=== PATIENT | female | born 2005 | race African-American/Black ===

== ENCOUNTER 2025-04-15 17:32 | Emergency (ER) | payer OTHER ==
[~2025-04-15] VITALS: Ht 170.2 cm; Wt 72.8 kg
[2025-04-15 20:29] LABS: PLATELET COUNT, AUTOMATED 212 10^3/uL (150-450)
[2025-04-15 20:53] LABS: MONO SCRN POSITIVE (NEGATIVE)
[2025-04-15 21:14] VITALS: BP 121/77; TEMP 99; O2SAT 97
[2025-04-15 21:28] LABS: ATYPICAL LYMPH 15 % (0-5); BASOPHILS 2 % (0-1); LYMPHOCYTES 51 % (16-44); MONOCYTES 2 % (0-5); NEUTROPHILS 30 % (28-66)
[2025-04-15 21:29] LABS: PLATELET ESTIMATE NORMAL (NORMAL)
== END 2025-04-15 21:15 | disposition home or self-care (01) ==
LOC: M ED 17:32
DX: B27.00 Gammaherpesviral mononucleosis without complication (principal); J03.90 Acute tonsillitis, unspecified